=== PATIENT | male | born 1980 | race Caucasian/White ===

== ENCOUNTER 2022-09-18 12:35 | Emergency (ER) | payer SELFPAY ==
--- NOTE | ~2022-09-18 | XR_ITS ---
EXAMINATION: XR hand RT min 3V DATE: 09/18/2022 13:54 INDICATION: Pain over the thenar eminence after being hand contrast. TECHNIQUE: Posteroanterior, oblique and lateral views of the right hand were obtained. COMPARISON: None. FINDINGS: Alignment is normal. No fracture. Joint spaces are normal. Soft tissues are unremarkable. IMPRESSION: 1. Negative right hand radiographs. Reviewed, dictated and finalized at location A. [employer] ROUTE DRIVER
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
--- NOTE | ~2022-09-18 | XR_ITS ---
EXAMINATION: XR chest 2V DATE: 09/18/2022 13:54 INDICATION: Shortness of breath TECHNIQUE: PA and lateral views of the chest were obtained. COMPARISON: None FINDINGS: The lungs are clear with no focal airspace opacities, pulmonary edema, pleural effusion or pneumothor ax. Cardiomegaly. Mild thoracic spondylosis with minimal anterior wedging of a few lower thoracic katlin tebral bodies. IMPRESSION: 1. Cardiomegaly. No other acute cardiopulmonary disease. Reviewed, dictated and finalized at location A. 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
[2022-09-18 12:43] VITALS: BP 127/90; PULSE 90; RESP 19; TEMP 36.4; O2SAT 98
[2022-09-18 13:30] VITALS: BP 118/80; PULSE 88; RESP 16; TEMP 36.8; O2SAT 100
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
[2022-09-18 14:16] LABS: Basophils Absolute Auto 0.1 K/mm3 (0.0-0.1); Basophils Percent Auto 0.5 % (0.2-1.2); Eosinophils Absolute Auto 0.2 K/mm3 (0-0.3); Eosinophils Percent Auto 1.5 % (0-4.4); Hematocrit 47.9 % (42.0-52.0); Hemoglobin 16.3 g/dL (14.0-18.0); Immature Granulocyte Absolute 0.03 K/mm3 (0.00-0.031); Immature Granulocyte Percent A 0.3 % (0-0.5); Lymphocytes Absolute Auto 2.24 K/mm3 (0.9-3.2); Lymphocytes Percent Auto 21.3 % (18.3-44.2); Mean Corpuscular Volume 91.1 fl (80-100); Mean Platelet Volume 10.2 fl (7.4-10.4); Monocytes Absolute Auto 0.5 K/mm3 (0.1-0.6); Monocytes Percent Auto 5.1 % (2.6-8.5); Neutrophils Absolute Auto 7.5 K/mm3 (1.3-6.7); Neutrophils Percent Auto 71.3 % (45.5-73.1); Platelet Count Result 273 k/mm3 (150-375); Red Blood Count 5.26 M/mm3 (4.6-6.20); Red Cell Distribution Width 12.8 % (11.5-14.5); White Blood Count 10.5 K/mm3 (4.5-10.0)
[2022-09-18 14:30] VITALS: BP 122/78; PULSE 86; RESP 16; TEMP 36.8; O2SAT 98
[2022-09-18 14:36] LABS: Alanine Aminotransferase 44 U/L (6-50); Albumin Level 4.5 g/dL (3.5-5.1); Alkaline Phosphatase 63 U/L (38-126); Anion Gap 6 mmol/L (8-16); Aspartate Amino Transferase 32 U/L (17-59); Bilirubin,Total 0.4 mg/dL (0.2-1.3); Blood Urea Nitrogen 20 mg/dL (9-20); Carbon Dioxide 29 mmol/L (22-30); Chloride 102 mmol/L (98-107); Estimated Glomerular Filt Rate > 60; Glucose 95 mg/dL (65-110); Lipase 107 U/L (23-300); Potassium 4.2 mmol/L (3.4-5.0); Sodium 137 mmol/L (137-145)
--- NOTE | 2022-09-18 14:48 | ECG_ITS ---
Measurements Intervals [place] Rate: 71 P: 33 CT: 160 QRS: 19 QRSD: 109 T: 33 QT: 399 QTc: 435 Interpretive Statements SINUS RHYTHM WITH SINUS ARRHYTHMIA NORMAL ECG NO PREVIOUS ECG AVAILABLE FOR COMPARISON Electronically Signed On 09-18-2022 15:20:05 TRAFFIC ASSISTANT by Faustino Pickett D.O.
[2022-09-18 15:30] VITALS: BP 116/76; PULSE 82; RESP 16; TEMP 36.7; O2SAT 98
== END 2022-09-18 15:50 | disposition home or self-care (01) ==
PROVIDERS: Emergency Provider Emergency Medicine
DX: S09.90XA Unspecified injury of head, initial encounter (principal); S60.221A Contusion of right hand, initial encounter; R10.9 Unspecified abdominal pain; I51.7 Cardiomegaly; Y08.02XA Assault by strike by baseball bat, initial encounter
CPT/HCPCS: 36415; 70450; 71046; 73130; 80053; 83690; 85025; 93005; 99284